=== PATIENT | male | born 1950 | race Caucasian/White ===

== ENCOUNTER 2020-08-29 14:13 | Emergency (ER) | payer MEDICARE, BC ==
[~2020-08-29] VITALS: Ht 180.3 cm; Wt 106.6 kg
[~2020-08-29 14:13] MED LIST: CEPH500 PO; HYDACE5 PO
[2020-08-29 15:14] LABS: BASOPHILS ABSOLUTE AUTO 0.04 K/mm3 (0.00-0.23); BASOPHILS PERCENT AUTO 1 % (0-2); EOSINOPHILS PERCENT AUTO 1 % (0-6); Hematocrit 45.4 % (37.0-53.0); IMMATURE GRAN ABSOLUTE AUTO 0.03 K/mm3 (0.00-0.10); IMMATURE GRAN PERCENT AUTO 0 % (0-1); LYMPHOCYTES PERCENT AUTO 23 % (21-46); MONOCYTES ABSOLUTE AUTO 0.63 K/mm3 (0.16-1.47); MONOCYTES PERCENT AUTO 8 % (4-13); Mean Corpuscular HGB 33.5 pg (26.0-34.0); Mean Corpuscular HGB Conc 35.2 g/dL (31.5-36.5); Mean Corpuscular Volume 95 fL (80-100); Mean Platelet Volume 10.9 fL (9.1-12.4); NEUTROPHILS ABSOLUTE AUTO 5.05 K/mm3 (1.96-9.15); NEUTROPHILS PERCENT AUTO 67 % (41-73); Platelet Count 276 K/mm3 (150-400); RDW Coefficient Variation 12.4 % (11.7-14.2); RDW Standard Deviation 43.4 fL (35.1-46.3); Red Blood Cell Count 4.77 M/mm3 (4.30-5.90); White Blood Cell Count 7.55 K/mm3 (4.00-11.30)
[2020-08-29 15:34] LABS: Alanine Aminotransfer (ALT/SGP 38 U/L (12-78); Albumin/Globulin Ratio 1.1 (0.8-1.8); Alk Phos 109 U/L (50-136); Anion Gap 8 mmol/L (6-16); Aspartate Aminotrans (AST/SGOT 26 U/L (12-37); Bilirubin, Total 0.4 mg/dL (0.1-1.0); Blood Urea Nitrogen 23 mg/dL (8-24); Bun/Creatinine Ratio 26.7 (12.0-20.0); CO2, Blood 21 mmol/L (21-32); Calcium, Blood 9.2 mg/dL (8.5-10.1); Chloride, Blood 108 mmol/L (98-108); Creatinine, Blood 0.86 mg/dL (0.60-1.20); Globulin, Blood 3.5 g/dL (2.2-4.0); Glomerular Filtration Rate >60 (60-); Glucose, Blood 159 mg/dL (70-99); Potassium, Blood 4.4 mmol/L (3.5-5.5); Sodium, Blood 137 mmol/L (136-145); Total Protein, Blood 7.5 g/dL (6.4-8.2); Troponin I <0.015 ng/mL (0.000-0.040)
[2020-08-29] MEDS ORDERED: PRAVASTATIN SOD20 MG PO (16:45)
[2020-08-29] MEDS ORDERED: LISINOPRIL TAB 20M (16:45)
[2020-08-29] MEDS ORDERED: DOCU100 PO (16:45)
[2020-08-29] MEDS ORDERED: [UNRECOGNIZED DRUG - OTHER] (16:45)
[2020-08-29] MEDS ORDERED: LOW DOSE ASPIRI81 M1 (16:45)
[2020-08-29] MEDS ORDERED: Lisinopril2.5 MG PO (16:46)
[2020-08-29] MEDS ORDERED: METF500 PO (16:46)
[2020-08-29] MEDS ORDERED: METOPROLOL TART25 MG PO (16:46)
== END 2020-08-29 17:21 | disposition home or self-care (01) ==
LOC: ER 14:13
PROVIDERS: Physician Assistant
DX: R55 Syncope and collapse (principal); Z79.82 Long term (current) use of aspirin; Z79.899 Other long term (current) drug therapy
CPT/HCPCS: 36415; 71046; 80053; 84484; 85025; 93005; 93010; 93242; 99284-25

== ENCOUNTER 2020-11-18 10:28 | Day surgery (SDC) | payer MEDICARE, BC ==
[~2020-11-18] VITALS: Ht 180.3 cm; Wt 104.3 kg
[~2020-11-18 10:28] MED LIST changes: +DOCU100 PO; +LISINOPRIL TAB 20M; +LOW DOSE ASPIRI81 M1; +Lisinopril2.5 MG PO; +METF500 PO; +METOPROLOL TART25 MG PO; +PRAVASTATIN SOD20 MG PO; +[UNRECOGNIZED DRUG - OTHER]
--- NOTE | 2020-11-18 11:51 | NUR ---
1146 DR. LAUREN, NADINE MILLER, AMY AND GIGI GARCIA RN AT THE BEDSIDE FOR LOOP RECORDER IMPLANT. TIME OUT PERFORMED, NO ALLERGIRES NOTED. CONSENT SIGNED. BLOOD CONSENT SIGNED. PATIENT ADN VERIFIED. MED RECONCILATION REVIEWED. LOOP RECORDER IMPLANT PREFORMED AND DIANDRA TOLERATED WELL. [facility] GIGI GARCIA RN AT THE BEDSIDE FOR TEACHING. DRESSING APPLIED AFTER SUTURED AND STERI STRIPPED. PATIENT IS UP AND DRESSED. WOUND CHECK AND FOLLOW UP APPOINTMENT WITH DISCHARGE INSTRUCTIONS GIVEN TO THE PATIENT. PATIENT WENT THROUGH A REMOTE UPLOAD WITH THE PACER CLINIC REP WHICK WAS SUCCESSFUL. DIANDRA DISCHARGED HOME AT 1210.
== END 2020-11-18 22:42 | disposition home or self-care (01) ==
LOC: MHTC 10:28
DX: R55 Syncope and collapse (principal)
CPT/HCPCS: 33285; C1764

== ENCOUNTER 2022-03-07 17:53 | Emergency (ER) | payer MEDICARE, BC ==
[~2022-03-07] VITALS: Ht 180.3 cm; Wt 103.0 kg
== END 2022-03-07 19:32 | disposition home or self-care (01) ==
LOC: ER 17:53
DX: I82.811 Embolism and thrombosis of superficial veins of right lower extremity (principal); Z79.82 Long term (current) use of aspirin; Z79.84 Long term (current) use of oral hypoglycemic drugs; Z79.899 Other long term (current) drug therapy
CPT/HCPCS: 93971